=== PATIENT | female | born 1940 | race Caucasian/White ===

== ENCOUNTER 2018-03-18 05:00 | Day surgery (SDC) | payer OTHER ==
[~2018-03-18 05:00] MED LIST: BONIVA150 MG PO; CALTRATE 600+D1 EAC1 PO; CENTRUM SILVER1 EAC3 PO; COZAAR100 MG PO; NORVASC5 MG PO; SIMVASTATIN20 MG PO; [UNRECOGNIZED DRUG - OTHER]
[2018-03-18] MEDS ORDERED: ULTRACET PO (08:53)
[2018-03-18] MEDS ORDERED: MACROBID 100 M100 MG PO (08:53)
== END 2018-03-18 11:30 | disposition home or self-care (01) ==
LOC: CIR.AMB 05:00
DX: N81.11 Cystocele, midline (principal)